=== PATIENT | female | born 1970 | race Caucasian/White ===

== ENCOUNTER 2018-08-13 09:14 | Outpatient (CLI) | payer BC | END 2018-08-13 11:15 | disposition home or self-care (01) | LOC: EKG 09:14 | DX: R00.2 Palpitations (principal) ==

== ENCOUNTER → 2020-03-17 11:48 | Outpatient (CLI) | payer OTHER | END | disposition home or self-care (01) | LOC: LAB 11:48 | DX: Z20.828 Contact with and (suspected) exposure to other viral communicable diseases (principal) ==